=== PATIENT | female | born 1995 | race Caucasian/White ===

== ENCOUNTER 2016-06-04 03:40 | Emergency (ER) | payer OTHER, MEDICAID ==
[~2016-06-04 03:40] MED LIST: CELE10TA; MOTRIN PO; TYLE500T78 PO
[2016-06-04] MEDS ORDERED: ADACEL/BOOSTRIX VACCINE (DIPHTH/PERTUSS/ACELL/TETANUS)0.5ML SYR (90715) As Ordered ONE (07:04)
[2016-06-04] MEDS ORDERED: CIPROFLOXACIN 500 MG TAB As Ordered ONE (07:04)
--- NOTE | 2016-06-04 08:00 | REP ---
RIGHT FOOT SERIES: Two views. HISTORY: Trauma. FINDINGS: AP and lateral views of the right foot demonstrate overall normal mineralization. Bones joints and soft tissues are unremarkable. IMPRESSION: Negative AP and lateral views of the right foot. No fracture seen. Signed by Jordy Collins MD 06/04/2016 10:05 A
--- NOTE | 2016-06-04 08:43 | EDDOCDS ---
Nurse's Notes [facility] Name: Mireya Gordon Age: 21 yrs Sex: Female : 1995 Arrival Date: 06/04/2016 Time: 03:40 Bed 5 Private MD: Diagnosis: Puncture wound without foreign body, right foot Presentation: 06/04 03:57 Presenting complaint: Patient states: she was at work helping a co-worker with a pallet cz and stepped on a nail either from the pallet or one that was on the floor. Adult Sepsis Screening: The patient does not have new or worsening altered mentation. Patient's respiratory rate is less than 22. Systolic blood pressure is greater than 100. Patient has a qSOFA score of 0- Negative Sepsis Screen. Suicide/Homicide risk assessment- the patient denies having any suicidal and/or homicidal ideations and does not present with any other emotional, behavioral or mental health complaints. Status: Patient is not a automotive service technician or dependent. Transition of care: patient was not received from another setting of care. 03:57 Acuity: SHIRLEY Level 4 cz 03:57 Method Of Arrival: Wheelchair cz Triage Assessment: 03:58 General: Appears uncomfortable. Pain: Location: right foot Pain currently is 7 out of cz 10 on a pain scale. HIV screening NA for this visit Offered previously. QA ANALYST: 03:58 LMP 04/30/2016 cz Historical: - Allergies: No known drug Allergies; - Home Meds: 1. none - PMHx: none; - PSHx: none; - Social history: Smoking status: Patient states was never smoker of tobacco. No barriers to communication noted, The patient speaks fluent Danish, Speaks appropriately for age. - Family history: Not pertinent. - : The pt / caregiver states he / she is not on anticoagulants. Home medication list is obtained from the patient. - Exposure Risk Screening:: None identified. - Tetanus status: unknown. Screenin:52 Screening information is obtained from the patient. Fall risk: No risks identified. mv5 Assistance ADL's: requires no assistance with activities of daily living. Abuse/DV Screen: The patient / caregiver reports he/she is: not in a situation that causes fear, pain or injury. Nutritional screening: No deficits noted. Advance Directives: There is no active DNR order. home support is adequate. Assessment: 05:52 General: Appears in no apparent distress, Behavior is cooperative. Pain: Location: arch mv5 of right foot Quality of pain is described as tender, throbbing. Neurological: Level of Consciousness is awake, alert, Oriented to person, place, time. Derm: Skin is pink, warm & dry. Musculoskeletal: Circulation, motion, and sensation intact Capillary refill < 3 seconds. Injury Description: Puncture sustained to arch of right foot. 07:07 General: Appears in no apparent distress, Behavior is appropriate for age, cooperative. js13 Pain: Location: right foot. Neurological: Level of Consciousness is awake, alert. Respiratory: Airway is patent Respiratory effort is even, unlabored, Respiratory pattern is regular, symmetrical. Derm: Skin is pink, warm & dry. 08:19 Adult Sepsis Screening: The patient does not have new or worsening altered mentation. js13 Patient's respiratory rate is less than 22. Systolic blood pressure is greater than 100. Patient has a qSOFA score of 0- Negative Sepsis Screen. General: Appears in no apparent distress, comfortable, Behavior is appropriate for age, cooperative. Pain: Denies pain. Neurological: No deficits noted. Level of Consciousness is awake, alert. Respiratory: Airway is patent Respiratory effort is even, unlabored, Respiratory pattern is regular, symmetrical. Derm: Skin is pink, warm & dry. Vital Signs: 03:58 BP 123 / 74; Pulse 102; Resp 16; Temp 97.4(T); Pulse Ox 100% on R/A; Weight 99.79 kg; cz Height 5 ft. 6 in. (167.64 cm); 07:19 BP 120 / 76; Pulse 102; Resp 17; Temp 98.4(O); Pulse Ox 99% on R/A; lr2 08:39 BP 119 / 78; Pulse 100; Resp 18; Temp 98.6(O); Pulse Ox 99% on R/A; Pain 4/10; nb2 03:58 Body Mass Index 35.51 (99.79 kg, 167.64 cm) Vitals: 03:58 Log In Time: June 04, 2016 at 03:42. ED Course: 03:42 Patient visited by Anabel Hummel, Reg. hs2 03:42 Patient moved to Waiting hs2 03:57 Patient moved to Triage 1 03:58 Triage Initiated cz 04:01 Patient moved to Pre RCE cz 05:14 Tracee Jon RN is Primary Nurse. ml3 05:14 Patient moved to 5 ml3 05:49 [facility] Payment Agreement was scanned into [employer] and attached to record. slh 05:52 Patient visited by Tracee Jon RN. mv5 05:52 The patient / caregiver is instructed regarding the plan of care and ED course. mv5 06:39 Patient visited by Tracee Jon RN. mv5 06:46 Al Patino DO is Attending Physician. cs11 06:46 Patient visited by Al Patino DO. cs11 06:54 Attending Physician role handed off by Al Patino DO sd1 06:54 Magdalena Izquierdo MD is Attending Physician. sd1 07:03 Vane Hamilton RN is Primary Nurse. js13 07:07 No IV's were initiated during this patient's visit. No procedures done that require js13 assistance. 07:08 Patient visited by Vane Hamilton RN. js13 07:20 Patient visited by Lorrie Damon. lr2 07:35 Primary Nurse role handed off by Tracee Jon RN kr3 08:12 Foot, (AP\E\lat) Returned. EDMS 08:20 Patient visited by Vane Hamilton RN. js13 08:39 Patient visited by Caitlin Celis. nb2 08:41 Wound care located on right foot was dressed with band aid. kr3 Administered Medications: 07:08 Drug: Tetanus- Diptheria-Acellular Pertussis 0.5 ml [diphth,pertussis(acel),tetanus 2.5 mv5 Lf unit-8 mcg-5 Lf/0.5mL IM syringe (0.5 mL)] {Tube Drawer: [employer]. Exp: 07/21/2018. Lot #: [id number]. } Route: IM; Site: right deltoid; 07:08 Drug: Ciprofloxacin 500 mg [ciprofloxacin 500 mg tablet (1 tabs)] Route: PO; mv5 Order Results: Radiology Order: Foot, (AP\E\lat) Test: Foot, (AP\E\lat) REASON FOR EXAMINATION: Trauma; RIGHT FOOT SERIES: Two views.; ; HISTORY: Trauma.; ; FINDINGS: AP and lateral views of the right foot demonstrate overall normal; mineralization. Bones joints and soft tissues are unremarkable.; ; IMPRESSION:; Negative AP and lateral views of the right foot. No fracture seen.; ; ; ; ; Unreviewed; Outcome: 08:35 Discharge ordered by Provider. sd1 08:42 Discharge Assessment: patient administered narcotics - no. The following High Risk kr3 Discharge criteria are identified: None. Discharged to home ambulatory, with friend. Condition: stable. Discharge instructions given to patient, Instructed on discharge instructions, follow up and referral plans. medication usage, Demonstrated understanding of instructions, medications, Pt was receptive of discharge instructions/ teaching. Prescriptions given X 1. No special radiology studies were completed. Property sent home with patient. 08:42 Patient left the ED. kr3 Signatures: Dispatcher MedHost EDMS Magdalena Izquierdo MD MD sd1 Omari Mancia, RN RN cz Butch, Garrick, Title Insurance Examiner Unit ml3 Ivette Boyer,RN RN kr3 Vane HamiltonRN RN js13 Al Patino, DO cs11 Shannon Ziegler slAnabel Price, Reg Reg hs2 Caitlin Celis2 Lorrie Damon lr2 Tracee Jon,RN RN mv5 MTDD
--- NOTE | 2016-06-04 08:43 | EDDOCDS ---
Physician Documentation [facility] Name: Mireya Gordon Age: 21 yrs Sex: Female : 1995 Arrival Date: 06/04/2016 Time: 03:40 Bed 5 Private MD: Disposition: 06/04/16 08:35 Discharged to Home/Self Care. Impression: Puncture wound without foreign body, right foot. - Condition is Stable. - Discharge Instructions: Puncture Wound, Puncture Wound, [id number]. - Prescriptions for Cipro 500 mg Oral Tablet - take 1 tablet by ORAL route every 12 hours; 10 tablet. - Medication Reconciliation, Local Pharmacy Hours form. - Follow up: Private Physician; When: Call to arrange an appointment; Reason: Recheck today's complaints. Follow up: Emergency Department; When: 2 - 3 days; Reason: Recheck today's complaints. - Problem is new. - Symptoms have improved. Historical: - Allergies: No known drug Allergies; - Home Meds: 1. none - PMHx: none; - PSHx: none; - Social history: Smoking status: Patient states was never smoker of tobacco. No barriers to communication noted, The patient speaks fluent Zambian, Speaks appropriately for age. - Family history: Not pertinent. - : The pt / caregiver states he / she is not on anticoagulants. Home medication list is obtained from the patient. - Exposure Risk Screening:: None identified. - Tetanus status: unknown. INTERVENTIONAL PHYSICIAN: 06/04 03:58 LMP 04/30/2016 cz Vital Signs: 03:58 BP 123 / 74; Pulse 102; Resp 16; Temp 97.4(T); Pulse Ox 100% on R/A; Weight 99.79 kg / cz 220 lbs; Height 5 ft. 6 in. (167.64 cm); 07:19 BP 120 / 76; Pulse 102; Resp 17; Temp 98.4(O); Pulse Ox 99% on R/A; lr2 08:39 BP 119 / 78; Pulse 100; Resp 18; Temp 98.6(O); Pulse Ox 99% on R/A; Pain 4/10; nb2 03:58 Body Mass Index 35.51 (99.79 kg, 167.64 cm) cz MDM: 05:49 [facility] Payment Agreement was scanned into MEDHOST and attached to record. [facility] 06:42 Tetanus- Diptheria-Acellular Pertussis 0.5 ml IM once; Routine booster 10-64yrs, >64 cs11 with child contact [employer] ordered. 06:43 Foot, (AP\E\lat) Ordered. EDNM 06:49 Financial registration complete. hs2 06:54 Ciprofloxacin 500 mg PO once ordered. cs11 Administered Medications: 07:08 Drug: Tetanus- Diptheria-Acellular Pertussis 0.5 ml [diphth,pertussis(acel),tetanus 2.5 mv5 Lf unit-8 mcg-5 Lf/0.5mL IM syringe (0.5 mL)] {Sales Assistant Entertainment And Media: [employer]. Exp: 07/21/2018. Lot #: [id number]. } Route: IM; Site: right deltoid; 07:08 Drug: Ciprofloxacin 500 mg [ciprofloxacin 500 mg tablet (1 tabs)] Route: PO; mv5 Signatures: Dispatcher Med[employer] EDNM Magdalena Izquierdo MD MD sd1 Omari Mancia, RN RN cz Ivette Boyer RN RN kr3 Al Patino, DO DO cs11 Shannon Ziegler [facility] Anabel Hummel, Reg Reg hs2 Tracee Jon,RN RN mv5 The chart was reviewed and I authenticate all verbal orders and agree with the evaluation and treatment provided.Attachments: 05:49 [facility] Payment Agreement [facility] MTDD
--- NOTE | 2016-06-06 09:43 | EDDOCDS ---
Nurse's Notes [facility] Name: Mireya Gordon Age: 21 yrs Sex: Female : 1995 Arrival Date: 06/04/2016 Time: 03:40 Bed 5 Private MD: Diagnosis: Puncture wound without foreign body, right foot Presentation: 06/04 03:57 Presenting complaint: Patient states: she was at work helping a co-worker with a pallet cz and stepped on a nail either from the pallet or one that was on the floor. Adult Sepsis Screening: The patient does not have new or worsening altered mentation. Patient's respiratory rate is less than 22. Systolic blood pressure is greater than 100. Patient has a qSOFA score of 0- Negative Sepsis Screen. Suicide/Homicide risk assessment- the patient denies having any suicidal and/or homicidal ideations and does not present with any other emotional, behavioral or mental health complaints. Status: Patient is not a funeral service apprentice or dependent. Transition of care: patient was not received from another setting of care. 03:57 Acuity: SHIRLEY Level 4 cz 03:57 Method Of Arrival: Wheelchair cz Triage Assessment: 03:58 General: Appears uncomfortable. Pain: Location: right foot Pain currently is 7 out of cz 10 on a pain scale. HIV screening NA for this visit Offered previously. SURGICAL GARMENT FITTER: 03:58 LMP 04/30/2016 cz Historical: - Allergies: No known drug Allergies; - Home Meds: 1. none - PMHx: none; - PSHx: none; - Social history: Smoking status: Patient states was never smoker of tobacco. No barriers to communication noted, The patient speaks fluent Danish, Speaks appropriately for age. - Family history: Not pertinent. - : The pt / caregiver states he / she is not on anticoagulants. Home medication list is obtained from the patient. - Exposure Risk Screening:: None identified. - Tetanus status: unknown. Screenin:52 Screening information is obtained from the patient. Fall risk: No risks identified. mv5 Assistance ADL's: requires no assistance with activities of daily living. Abuse/DV Screen: The patient / caregiver reports he/she is: not in a situation that causes fear, pain or injury. Nutritional screening: No deficits noted. Advance Directives: There is no active DNR order. home support is adequate. Assessment: 05:52 General: Appears in no apparent distress, Behavior is cooperative. Pain: Location: arch mv5 of right foot Quality of pain is described as tender, throbbing. Neurological: Level of Consciousness is awake, alert, Oriented to person, place, time. Derm: Skin is pink, warm & dry. Musculoskeletal: Circulation, motion, and sensation intact Capillary refill < 3 seconds. Injury Description: Puncture sustained to arch of right foot. 07:07 General: Appears in no apparent distress, Behavior is appropriate for age, cooperative. js13 Pain: Location: right foot. Neurological: Level of Consciousness is awake, alert. Respiratory: Airway is patent Respiratory effort is even, unlabored, Respiratory pattern is regular, symmetrical. Derm: Skin is pink, warm & dry. 08:19 Adult Sepsis Screening: The patient does not have new or worsening altered mentation. js13 Patient's respiratory rate is less than 22. Systolic blood pressure is greater than 100. Patient has a qSOFA score of 0- Negative Sepsis Screen. General: Appears in no apparent distress, comfortable, Behavior is appropriate for age, cooperative. Pain: Denies pain. Neurological: No deficits noted. Level of Consciousness is awake, alert. Respiratory: Airway is patent Respiratory effort is even, unlabored, Respiratory pattern is regular, symmetrical. Derm: Skin is pink, warm & dry. Vital Signs: 03:58 BP 123 / 74; Pulse 102; Resp 16; Temp 97.4(T); Pulse Ox 100% on R/A; Weight 99.79 kg; cz Height 5 ft. 6 in. (167.64 cm); 07:19 BP 120 / 76; Pulse 102; Resp 17; Temp 98.4(O); Pulse Ox 99% on R/A; lr2 08:39 BP 119 / 78; Pulse 100; Resp 18; Temp 98.6(O); Pulse Ox 99% on R/A; Pain 4/10; nb2 03:58 Body Mass Index 35.51 (99.79 kg, 167.64 cm) Vitals: 03:58 Log In Time: June 04, 2016 at 03:42. ED Course: 03:42 Patient visited by Anabel Hummel, Reg. hs2 03:42 Patient moved to Waiting hs2 03:57 Patient moved to Triage 1 03:58 Triage Initiated cz 04:01 Patient moved to Pre RCE cz 05:14 Tracee Jon RN is Primary Nurse. ml3 05:14 Patient moved to 5 ml3 05:49 [facility] Payment Agreement was scanned into [employer] and attached to record. slh 05:52 Patient visited by Tracee Jon RN. mv5 05:52 The patient / caregiver is instructed regarding the plan of care and ED course. mv5 06:39 Patient visited by Tracee Jon RN. mv5 06:46 Al Patino DO is Attending Physician. cs11 06:46 Patient visited by Al Patino DO. cs11 06:54 Attending Physician role handed off by Al Patino DO sd1 06:54 Magdalena Izquierdo MD is Attending Physician. sd1 07:03 Vane Hamilton RN is Primary Nurse. js13 07:07 No IV's were initiated during this patient's visit. No procedures done that require js13 assistance. 07:08 Patient visited by Vane Hamilton RN. js13 07:20 Patient visited by Lorrie Damon. lr2 07:35 Primary Nurse role handed off by Tracee Jon RN kr3 08:12 Foot, (AP\E\lat) Returned. EDMS 08:20 Patient visited by Vane Hamilton RN. js13 08:39 Patient visited by Caitlin Celis. nb2 08:41 Wound care located on right foot was dressed with band aid. kr3 18:28 T-Sheet-- Draft Copy was scanned into [employer] and attached to record. klr Administered Medications: 07:08 Drug: Tetanus- Diptheria-Acellular Pertussis 0.5 ml [diphth,pertussis(acel),tetanus 2.5 mv5 Lf unit-8 mcg-5 Lf/0.5mL IM syringe (0.5 mL)] {Fashion Illustrator: [employer]. Exp: 07/21/2018. Lot #: [id number]. } Route: IM; Site: right deltoid; 07:08 Drug: Ciprofloxacin 500 mg [ciprofloxacin 500 mg tablet (1 tabs)] Route: PO; mv5 Order Results: Radiology Order: Foot, (AP\E\lat) Test: Foot, (AP\E\lat) REASON FOR EXAMINATION: Trauma; RIGHT FOOT SERIES: Two views.; ; HISTORY: Trauma.; ; FINDINGS: AP and lateral views of the right foot demonstrate overall normal; mineralization. Bones joints and soft tissues are unremarkable.; ; IMPRESSION: Negative AP and lateral views of the right foot. No fracture seen.; ; ; Signed by; Jordy Collins MD 06/04/2016 10:05 A; Outcome: 08:35 Discharge ordered by Provider. sd1 08:42 Discharge Assessment: patient administered narcotics - no. The following High Risk kr3 Discharge criteria are identified: None. Discharged to home ambulatory, with friend. Condition: stable. Discharge instructions given to patient, Instructed on discharge instructions, follow up and referral plans. medication usage, Demonstrated understanding of instructions, medications, Pt was receptive of discharge instructions/ teaching. Prescriptions given X 1. No special radiology studies were completed. Property sent home with patient. 08:42 Patient left the ED. kr3 Signatures: Dispatcher MedHost EDMS Magdalena Izquierdo MD MD sd1 Omari Mancia, RN RN cz Garrick Rae, Windows Laptop Technician Unit ml3 Ivette Boyer,RN RN kr3 Vane Hamilton,RN RN js13 Al Patino, DO cs11 Shannon Ziegler Hillary, Reg Reg hs2 Rosalina Voss Nicole nb2 Lorrie Damon lr2 Tracee Jon,RN RN mv5 Chart Complete MTDD
--- NOTE | 2016-06-06 09:43 | EDDOCDS ---
Physician Documentation [facility] Name: Mireya Gordon Age: 21 yrs Sex: Female : 1995 Arrival Date: 06/04/2016 Time: 03:40 Bed 5 Private MD: Disposition: 06/04/16 08:35 Discharged to Home/Self Care. Impression: Puncture wound without foreign body, right foot. - Condition is Stable. - Discharge Instructions: Puncture Wound, Puncture Wound, [id number]. - Prescriptions for Cipro 500 mg Oral Tablet - take 1 tablet by ORAL route every 12 hours; 10 tablet. - Medication Reconciliation, Local Pharmacy Hours form. - Follow up: Private Physician; When: Call to arrange an appointment; Reason: Recheck today's complaints. Follow up: Emergency Department; When: 2 - 3 days; Reason: Recheck today's complaints. - Problem is new. - Symptoms have improved. Historical: - Allergies: No known drug Allergies; - Home Meds: 1. none - PMHx: none; - PSHx: none; - Social history: Smoking status: Patient states was never smoker of tobacco. No barriers to communication noted, The patient speaks fluent Nepali, Speaks appropriately for age. - Family history: Not pertinent. - : The pt / caregiver states he / she is not on anticoagulants. Home medication list is obtained from the patient. - Exposure Risk Screening:: None identified. - Tetanus status: unknown. ASSOCIATE VETERINARIAN: 06/04 03:58 LMP 04/30/2016 cz Vital Signs: 03:58 BP 123 / 74; Pulse 102; Resp 16; Temp 97.4(T); Pulse Ox 100% on R/A; Weight 99.79 kg / cz 220 lbs; Height 5 ft. 6 in. (167.64 cm); 07:19 BP 120 / 76; Pulse 102; Resp 17; Temp 98.4(O); Pulse Ox 99% on R/A; lr2 08:39 BP 119 / 78; Pulse 100; Resp 18; Temp 98.6(O); Pulse Ox 99% on R/A; Pain 4/10; nb2 03:58 Body Mass Index 35.51 (99.79 kg, 167.64 cm) cz MDM: 05:49 [facility] [place] Payment Agreement was scanned into [employer] Online and attached to record. [facility] 06:42 Tetanus- Diptheria-Acellular Pertussis 0.5 ml IM once; Routine booster 10-64yrs, >64 cs11 with child contact [place] [employer] ordered. 06:43 Foot, (AP\E\lat) Ordered. [facility] 06:49 Financial registration complete. hs2 06:54 Ciprofloxacin 500 mg PO once ordered. [facility] 18:28 T-Sheet-- Draft Copy was scanned into [employer] Online and attached to record. klr Administered Medications: 07:08 Drug: Tetanus- Diptheria-Acellular Pertussis 0.5 ml [diphth,pertussis(acel),tetanus 2.5 mv5 Lf unit-8 mcg-5 Lf/0.5mL IM syringe (0.5 mL)] {Atmospheric Scientist: [employer]. Exp: 07/21/2018. Lot #: [id number]. } Route: IM; Site: right deltoid; 07:08 Drug: Ciprofloxacin 500 mg [ciprofloxacin 500 mg tablet (1 tabs)] Route: PO; mv5 Signatures: Dispatcher MedHost EDSD Magdalena Izquierdo MD MD sd1 Omari Mancia, RN RN cz Ivette Boyer RN RN kr3 Al Patino, DO 11 Shannon Ziegler [facility] Anabel Hummel, Reg Reg hs2 Rosalina Voss Megan,RN RN mv5 The chart was reviewed and I authenticate all verbal orders and agree with the evaluation and treatment provided.Attachments: 05:49 [facility] [place] Payment Agreement [facility] 18:28 T-Sheet-- Draft Copy klr Chart Complete [facility]
--- NOTE | 2016-06-06 09:43 | EDDOCDS ---
Physician Documentation [facility] Name: Mireya Gordon Age: 21 yrs Sex: Female : 1995 Arrival Date: 06/04/2016 Time: 03:40 Bed 5 Private MD: Disposition: 06/04/16 08:35 Discharged to Home/Self Care. Impression: Puncture wound without foreign body, right foot. - Condition is Stable. - Discharge Instructions: Puncture Wound, Puncture Wound, [id number]. - Prescriptions for Cipro 500 mg Oral Tablet - take 1 tablet by ORAL route every 12 hours; 10 tablet. - Medication Reconciliation, Local Pharmacy Hours form. - Follow up: Private Physician; When: Call to arrange an appointment; Reason: Recheck today's complaints. Follow up: Emergency Department; When: 2 - 3 days; Reason: Recheck today's complaints. - Problem is new. - Symptoms have improved. Historical: - Allergies: No known drug Allergies; - Home Meds: 1. none - PMHx: none; - PSHx: none; - Social history: Smoking status: Patient states was never smoker of tobacco. No barriers to communication noted, The patient speaks fluent Romanian, Speaks appropriately for age. - Family history: Not pertinent. - : The pt / caregiver states he / she is not on anticoagulants. Home medication list is obtained from the patient. - Exposure Risk Screening:: None identified. - Tetanus status: unknown. 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 6 in. (167.64 cm); 07:19 BP 120 / 76; Pulse 102; Resp 17; Temp 98.4(O); Pulse Ox 99% on R/A; lr2 08:39 BP 119 / 78; Pulse 100; Resp 18; Temp 98.6(O); Pulse Ox 99% on R/A; Pain 4/10; nb2 03:58 Body Mass Index 35.51 (99.79 kg, 167.64 cm) cz MDM: 05:49 [facility] [place] Agreement was scanned into [employer] and attached to record. [facility] 06:42 Tetanus- Diptheria-Acellular Pertussis 0.5 ml IM once; Routine booster 10-64yrs, >64 cs11 with child contact [employer] ordered. 06:43 Foot, (AP\E\lat) Ordered. [facility] 06:49 Financial registration complete. hs2 06:54 Ciprofloxacin 500 mg PO once ordered. [facility] 18:28 T-Sheet-- Draft Copy was scanned into [employer] and attached to record. klr Administered Medications: 07:08 Drug: Tetanus- Diptheria-Acellular Pertussis 0.5 ml [diphth,pertussis(acel),tetanus 2.5 mv5 Lf unit-8 mcg-5 Lf/0.5mL IM syringe (0.5 mL)] {Disposal Worker: [employer]. Exp: 07/21/2018. Lot #: [id number]. } Route: IM; Site: right deltoid; 07:08 Drug: Ciprofloxacin 500 mg [ciprofloxacin 500 mg tablet (1 tabs)] Route: PO; mv5 Signatures: Dispatcher MedHost EDAR Magdalena Izquierdo MD MD sd1 Omari Mancia, RN RN cz Ivette Boyer RN RN kr3 Al Patino, DO 11 Shannon Ziegler [facility] Anabel Hummel, Reg Reg hs2 Rosalina Voss Megan,RN RN mv5 The chart was reviewed and I authenticate all verbal orders and agree with the evaluation and treatment provided.Attachments: 05:49 [facility] [place] Agreement [facility] 18:28 T-Sheet-- Draft Copy klr Chart Complete [facility]
== END 2016-06-04 08:42 | disposition home or self-care (01) ==
LOC: M ED 03:40
DX: S91.331A Puncture wound without foreign body, right foot, initial encounter (principal); W45.0XXA Nail entering through skin, initial encounter; Y92.89 Other specified places as the place of occurrence of the external cause; Y93.89 Activity, other specified; Y99.0 Civilian activity done for income or pay

== ENCOUNTER → 2016-07-22 | Outpatient (CLI) | payer MEDICAID | LOC: M SMT 09:21 | PROVIDERS: ATTEND Obstetrics & Gynecology | DX: Z34.81 Encounter for supervision of other normal pregnancy, first trimester (principal) ==

== ENCOUNTER → 2016-09-06 | Outpatient (CLI) | payer OTHER ==
[2016-09-06 19:29] LABS: BASO % 0.4 % (0.0-1.0); EOS # 0.1 K/mm3 (0.0-0.50); EOS % 1.2 % (0.0-3.0); LARGE UNSTAINED CELL # 0.1 K/mm3 (0.0-0.4); LARGE UNSTAINED CELL % 1.3 % (0.0-4.0); LYMPH # 2.6 K/mm3 (1.5-6.5); LYMPH % 28.9 % (24.0-44.0); MEAN CORPUSCULAR HEMOGLOBIN 25.4 pg (27.0-33.0); MEAN CORPUSCULAR HGB CONC 33.2 g/dl (32.0-36.5); MEAN CORPUSCULAR VOLUME 76.5 fl (80.0-96.0); MONO # 0.5 K/mm3 (0.0-0.8); MONO % 5.3 % (0.0-5.0); NEUTROPHILS # 5.5 K/mm3 (1.8-7.7); NEUTROPHILS % 62.9 % (36.0-66.0); PLATELET COUNT, AUTOMATED 273 k/mm3 (150-450); RED CELL DISTRIBUTION WIDTH 14.8 % (11.5-14.5); WHITE BLOOD COUNT 8.7 K/mm3 (4.0-10.0)
--- NOTE | 2016-09-07 04:44 | REP ---
Clinical: Anatomical evaluation. Comparison: None . Findings: Examination demonstrates a single live intrauterine in cephalic presentation. motion is identified by technologist. Placenta is noted right laterally and grade zero without evidence for placenta previa or abruption. Amniotic fluid volume is normal. Cervix measures 3.4 cm in length and appears closed. No evidence for nuchal cord. Gestational age by LMP 18 weeks 3 days with JATINDER 02/04/2017 . Gestational age by current measurements 18 weeks 1 day with JATINDER 02/06/2017 . FHR equals 153 beats per minute. BPD 4.0 cm 18 weeks 1 day HC 15.0 cm 18 weeks 0 days AC 12.5 cm 18 weeks 1 day FL 2.8 cm 18 weeks 3 days HL 2.9 cm 19 weeks 4 days HC/AC ratio 1.20 Estimated weight 231 grams ( 41st percentile). Anatomical assessment demonstrates normal structures including cranium, choroid plexus, cavum, cerebellum/posterior fossa, lungs, diaphragm, stomach, cord insertion/three-vessel cord, kidneys/bladder, spine, and upper extremities. Limited evaluation of the facial features, heart/ventricular outflow tracts and lower extremities noted. Impression: Single live intrauterine in cephalic presentation demonstrating appropriate interval growth. Anatomical limitations as described above. Remainder of the anatomical assessment is complete and normal. Signed by Franck Carrington MD 09/07/2016 04:35 A
[2016-09-07 09:30] LABS: HBsAg Prenatal NEGATIVE (NEGATIVE)
== END ==
LOC: M SMT 14:56
PROVIDERS: ATTEND Obstetrics & Gynecology
DX: Z34.82 Encounter for supervision of other normal pregnancy, second trimester (principal)

== ENCOUNTER 2016-09-27 02:49 | Emergency (ER) | payer OTHER ==
[~2016-09-27] VITALS: Ht 167.6 cm; Wt 83.0 kg
[2016-09-27] MEDS ORDERED: antibiotic PO (02:56)
[2016-09-27] MEDS ORDERED: TYLE325C PO (03:01)
[2016-09-27 03:57] LABS: BASO % 0.2 % (0.0-1.0); EOS # 0.1 K/mm3 (0.0-0.50); EOS % 1.1 % (0.0-3.0); LARGE UNSTAINED CELL # 0.1 K/mm3 (0.0-0.4); LARGE UNSTAINED CELL % 0.9 % (0.0-4.0); LYMPH # 1.5 K/mm3 (1.5-6.5); LYMPH % 18.1 % (24.0-44.0); MEAN CORPUSCULAR HEMOGLOBIN 24.3 pg (27.0-33.0); MEAN CORPUSCULAR VOLUME 75.9 fl (80.0-96.0); MONO # 0.3 K/mm3 (0.0-0.8); MONO % 4.1 % (0.0-5.0); NEUTROPHILS # 6.1 K/mm3 (1.8-7.7); NEUTROPHILS % 75.7 % (36.0-66.0); PLATELET COUNT, AUTOMATED 271 k/mm3 (150-450); RED CELL DISTRIBUTION WIDTH 14.6 % (11.5-14.5); WHITE BLOOD COUNT 8.1 K/mm3 (4.0-10.0)
[2016-09-27 04:20] LABS: ALBUMIN 2.5 GM/DL (3.2-5.2); ALBUMIN/GLOBULIN RATIO 0.69 (1.00-1.93); ALKALINE PHOSPHATASE 70 U/L (45-117); ALT/SGPT 13 U/L (12-78); ANION GAP 7 MEQ/L (8-16); AST/SGOT 9 U/L (15-37); BILIRUBIN,DIRECT < 0.1 MG/DL (0.0-0.2); BILIRUBIN,TOTAL 0.2 MG/DL (0.2-1.0); BLOOD UREA NITROGEN 5 MG/DL (7-18); CALCIUM LEVEL 7.7 MG/DL (8.5-10.1); CARBON DIOXIDE LEVEL 26 MEQ/L (21-32); CHLORIDE LEVEL 107 MEQ/L (98-107); CREATININE FOR GFR 0.41 MG/DL (0.55-1.02); GLOMERULAR FILTRATION RATE > 60.0 (>60); GLUCOSE, FASTING 93 MG/DL (70-105); POTASSIUM SERUM 3.8 MEQ/L (3.5-5.1); SODIUM LEVEL 140 MEQ/L (136-145); TOTAL PROTEIN 6.1 GM/DL (6.4-8.2)
[2016-09-27 05:47] VITALS: BP 113/70
--- NOTE | 2016-09-27 11:36 | ECGEPIP ---
Stationary ECG Study [facility] - ED Test Date: 2016-09-27 Pat Name: KAMILAH NOLASCO Department: Room: - Gender: F Personal Counselor: AlemanB: 1995 Requested By: CHUCKIE Bass PA-C Order Number: [id number] Reading MD: Javier Blanchard Measurements Intervals Chancellor Rate: 85 P: 2 MT: 152 QRS: 68 QRSD: 84 T: 12 QT: 381 QTc: 454 Interpretive Statements SINUS RHYTHM WITH SINUS ARRHYTHMIA Electronically Signed On 09-27-2016 11:36:31 EDT by Javier Blanchard
== END 2016-09-27 07:07 | disposition home or self-care (01) ==
LOC: M ED 03:50
DX: O99.89 Other specified diseases and conditions complicating pregnancy, childbirth and the puerperium (principal); R51 Headache; O24.419 Gestational diabetes mellitus in pregnancy, unspecified control; O99.52 Diseases of the respiratory system complicating childbirth; Z3A.00 Weeks of gestation of pregnancy not specified

== ENCOUNTER → 2016-09-28 | Outpatient (REF) | payer OTHER ==
[~2016-09-28] MED LIST changes: +TYLE325C PO; +antibiotic PO
== END ==
LOC: M LAB REF 16:59
PROVIDERS: ATTEND Specialist
DX: Z34.82 Encounter for supervision of other normal pregnancy, second trimester (principal)

== ENCOUNTER → 2016-10-13 | Outpatient (REF) | payer OTHER | LOC: M LAB REF 12:09 | PROVIDERS: ATTEND Physician Assistant Medical | DX: R30.0 Dysuria (principal) ==

== ENCOUNTER → 2016-10-19 | Outpatient (CLI) | payer OTHER | LOC: M WHC 10:04 | PROVIDERS: ATTEND Specialist | DX: Z34.82 Encounter for supervision of other normal pregnancy, second trimester (principal); Z3A.24 24 weeks gestation of pregnancy ==

== ENCOUNTER → 2016-10-26 | Outpatient (REF) | payer OTHER ==
[2016-10-26 19:19] LABS: BASO % 0.3 % (0.0-1.0); EOS # 0.1 K/mm3 (0.0-0.50); EOS % 0.9 % (0.0-3.0); LARGE UNSTAINED CELL # 0.1 K/mm3 (0.0-0.4); LARGE UNSTAINED CELL % 0.9 % (0.0-4.0); LYMPH # 2.2 K/mm3 (1.5-6.5); MEAN CORPUSCULAR HEMOGLOBIN 24.2 pg (27.0-33.0); MEAN CORPUSCULAR HGB CONC 32.3 g/dl (32.0-36.5); MONO # 0.5 K/mm3 (0.0-0.8); MONO % 5.3 % (0.0-5.0); NEUTROPHILS # 7.2 K/mm3 (1.8-7.7); NEUTROPHILS % 71.5 % (36.0-66.0); PLATELET COUNT, AUTOMATED 307 k/mm3 (150-450); RED CELL DISTRIBUTION WIDTH 14.9 % (11.5-14.5); WHITE BLOOD COUNT 10.1 K/mm3 (4.0-10.0)
== END ==
LOC: M LABSMT 17:30
PROVIDERS: ATTEND Specialist
DX: Z34.82 Encounter for supervision of other normal pregnancy, second trimester (principal)

== ENCOUNTER → 2016-11-09 | Outpatient (CLI) | payer OTHER | LOC: M SMT 10:27 | PROVIDERS: ATTEND Specialist | DX: Z36 Encounter for antenatal screening of mother (principal); Z3A.00 Weeks of gestation of pregnancy not specified ==

== ENCOUNTER → 2017-01-10 | Outpatient (REF) | payer OTHER | LOC: M LAB REF 13:03 | PROVIDERS: ATTEND Obstetrics & Gynecology | DX: O24.410 Gestational diabetes mellitus in pregnancy, diet controlled (principal); Z3A.00 Weeks of gestation of pregnancy not specified ==

== ENCOUNTER 2017-01-28 04:54 | Inpatient (IN) | payer OTHER ==
[2017-01-28] VITALS (24 sets, daily range): BP systolic 90–131; BP diastolic 53–81
[~2017-01-28] VITALS: Ht 167.6 cm; Wt 86.2 kg
[2017-01-28 05:59] LABS: MEAN CORPUSCULAR HEMOGLOBIN 19.7 pg (27.0-33.0); MEAN CORPUSCULAR HGB CONC 29.2 g/dl (32.0-36.5); RED CELL DISTRIBUTION WIDTH 18.3 % (11.5-14.5); WHITE BLOOD COUNT 9.6 10^3/uL (4.0-10.0)
[2017-01-28 06:01] LABS: MEAN CORPUSCULAR VOLUME 67.6 fl (80.0-96.0)
[2017-01-28] MEDS ORDERED: LR 1,000 ML IV SCH (06:10)
[2017-01-28] MEDS ORDERED: LACTATED RINGER'S 1000 ML IV STA (06:10)
[2017-01-28] MEDS ORDERED: OXYTOCIN DRIP 30 UNITS in APPROPRIATE DILUENT 1 EA IV SCH ×2 (06:15→11:27)
--- NOTE | 2017-01-28 06:37 | HPEPDOC ---
[facility] Medical History & Physical Date of Admission Jan 28, 2017 [facility] Attending Physician: ERIK CARTAGENA DO History and Physical CHIEF COMPLAINT: 21-year-old 2, para 1001, estimated date of delivery . Admitted at 39 weeks for induction of labor at term due to A1 gestational diabetes. HISTORY OF PRESENT ILLNESS: Last normal menstrual period 04/29/2016 for JATINDER of 02/03/2017. Prepregnancy weight was unknown. Weight at entry to care, was 190. She has gained no weight this . First trimester sonogram performed on July 05 at 9 weeks gestation confirmed the date of the . She has had appropriate care. She performed an early 1 hour glucose test due to her history of gestational diabetes with her previous that was normal. However her repeat third trimester glucose screen was abnormal. She declined performing the three-hour glucose and chose to start testing her blood sugars instead. She has been well maintained on dietary changes with appropriate glucose levels. Her anatomy scan was within normal limits OB history: November 2013. Normal spontaneous vaginal delivery, viable male child , 7 lbs. 11 oz. at 38+ weeks gestation. complicated by gestational diabetes PAST MEDICAL HISTORY: 1. Gestational diabetes. 2. Depression. 3. Asthma. PAST SURGICAL HISTORY: 1. None Reported. SOCIAL HISTORY: Marital status: Single. Father of the baby is present and supportive. Tobacco use: Denies ETOH: Denies Illicit drug use: Denies FAMILY HISTORY: Depression, anxiety and diabetes ALLERGIES: Please see below. CONSTITUTIONAL: Alert, well-nourished. HEENT: Within normal limits. CARDIOVASCULAR: Heart rate regular. RESPIRATORY: Respirations easy. ABDOMEN: Soft, gravid, longitudinal lie, rare contractions. heart 150, moderate variability with accelerations. SVE: 2-3 cm, 80% effaced, -2 station, cephalic. HOME MEDICATIONS: Please see below. LABORATORY DATA: A+, antibody negative, rubella immune. VDRL, hep B, hep C, HIV , gonorrhea and Chlamydia all negative. Early 1 hour glucose was 125. She declined genetic screening labs, repeat 1 hour glucose was 154, and her group B strep was negative MICROBIOLOGY: Please see below. ASSESSMENT: A 21-year-old 2, para 1001 at 39 weeks gestation. Category 1 tracing. A1 gestational diabetes for induction of labor at term. . PLAN: 1. Admit per consult Dr. Cartagena. Will initiate Pitocin induction of labor, glucose monitoring. Patient undecided on coping mechanisms for her labor. Anticipate normal spontaneous vaginal . Vital Signs Vital Signs Date Time Temp Pulse Resp B/P (MAP) Pulse Ox O2 Delivery O2 Flow Rate FiO2 01/28/17 05:49 97.9 01/28/17 05:10 116 18 115/75 (88) Laboratory Data Labs 24H Laboratory Tests 2 01/28/17 05:02: Serology Scanned Report Hepatitis B Testing 01/28/17 05:51: CBC/BMP Laboratory Tests 01/28/17 05:51 Red Blood Count 4.66, Mean Corpuscular Volume 67.6 L, Mean Corpuscular Hemoglobin 19.7 L, Mean Corpuscular Hemoglobin Concent 29.2 L, Red Cell Distribution Width 18.3 H Home Medications Scheduled (Tylenol) 325 Mg Cap, 325 MG PO ASDIRECTED [antibiotic] , 1 TAB PO BID Scheduled PRN Acetaminophen (Tylenol Extra Strength) 500 Mg Tab, 1,000 MG PO Q6HP PRN for MILD PAIN (PS 1-4) [Motrin] , 800 MG PO Q8HP PRN for MODERATE PAIN (PS 5-7) Miscellaneous Medications Citalopram Hydrobromide (Celexa) 10 Mg Tab Allergies Coded Allergies: No Known Allergies (Unverified Allergy, Mild, 03/19/08) Marine Moeller CNM Jan 28, 2017 06:37
[2017-01-28] MEDS ORDERED: FENTANYL 2MCG/ML ROPIVACAINE 0.2% IN 0.9% NACL 200ML IVBAG As Ordered ONE (08:14)
[2017-01-28] MEDS ORDERED: NALOXONE INJ 0.4 MG/1 ML VIAL (J2310) IV PRN (10:00)
[2017-01-28] MEDS ORDERED: ePHEDrine SULFATE 25 MG/5 ML(5MG/ML) SYRINGE IV PRN (10:00)
[2017-01-28] MEDS ORDERED: EPIDURAL COMMENT XX SCH (10:00)
[2017-01-28] MEDS ORDERED: diphenhydrAMINE INJ 50MG/ML VIAL (J1200) IV PRN (10:00)
[2017-01-28] MEDS ORDERED: LACTATED RINGER'S 1000 ML IV PRN (10:00)
[2017-01-28] MEDS ORDERED: REFRIGERATOR IV KEYS XX PRN (10:00)
[2017-01-28] MEDS ORDERED: FENTANYL/ROPIVACAINE/NACL BAG 200 ML EPIDURAL SCH (10:00)
[2017-01-28] MEDS ORDERED: EPIDURAL/PCA KEYS XX PRN (10:00)
[2017-01-28] MEDS ORDERED: ONDANSETRON 4MG/2ML VIAL (J2405) IV PRN ×2 (10:00→11:30)
[2017-01-28] MEDS: LR 1,000 ML IV SCH ×2 (11:27→19:27)
[2017-01-28] MEDS ORDERED: MEASLES,MUMPS,RUBELLA VACCINE INJ (MMR-II) (90707) SC SCH (11:30)
[2017-01-28] MEDS ORDERED: ACETAMINOPHEN 500 MG TAB PO PRN (11:30)
[2017-01-28] MEDS ORDERED: RHOGAM 300 MCG (1500 IU) INJ (J2790) IM SCH (11:30)
[2017-01-28] MEDS ORDERED: PROMETHAZINE 25 MG TAB PO PRN (11:30)
[2017-01-28] MEDS ORDERED: DOCUSATE SODIUM 100 MG CAP PO PRN (11:30)
[2017-01-28] MEDS: IBUPROFEN 800 MG TAB PO PRN (18:52)
[2017-01-29] MEDS: LR 1,000 ML IV SCH ×3 (03:27→19:30)
[2017-01-29 05:04] VITALS: BP 113/67
--- NOTE | 2017-01-29 07:59 | IPNPDOC ---
Date Seen The patient was seen on 01/29/17. Progress Note PP#1 Feels well. on demand. Voiding. Adequate pain management VSS Breasts soft, nipples intact Fundus firm, NT, down 1 FB Perineum intact Lochia rubra light without odor Legs negative A: PPD #1, early nursing going well P: Routine care. Anticipate D/C in am VS, I&O, 24H, Fishbone Vital Signs/I&O Vital Signs Date Time Temp Pulse Resp B/P (MAP) Pulse Ox O2 Delivery O2 Flow Rate FiO2 01/29/17 05:04 98.4 68 18 113/67 (82) 98 Room Air Marine Moeller CNM Jan 29, 2017 07:59
[2017-01-29] MEDS: PRENATAL VITAMINS CHEWABLE TABLET PO SCH (08:20)
[2017-01-29] MEDS: IBUPROFEN 800 MG TAB PO PRN ×2 (08:20→18:13)
[2017-01-29 18:00] VITALS: BP 124/70
[2017-01-30] MEDS: IBUPROFEN 800 MG TAB PO PRN ×2 (02:33→12:43)
[2017-01-30] MEDS: LR 1,000 ML IV SCH ×2 (03:27→11:27)
[2017-01-30 05:56] VITALS: BP 99/56
[2017-01-30] MEDS ORDERED: INFLUENZA QUADRIVALENT PF VACCINE 0.5ML SYRINGE (90686) IM ONE (09:00)
[2017-01-30] MEDS: PRENATAL VITAMINS CHEWABLE TABLET PO SCH (10:25)
--- NOTE | 2017-02-13 14:15 | DSES ---
DATE OF ADMISSION: 01/28/2017 DATE OF DISCHARGE: 01/30/2017 DISCHARGE DIAGNOSIS: Vaginal delivery. HISTORY AND HOSPITAL COURSE: This patient is a 21-year-old, 1, para 1, who presented at 39+ weeks for induction of labor for gestational diabetes. She had a spontaneous vaginal delivery on 01/28/2017 at 10:43, productive of a live born male infant. scores were 9 and 9. Weight was 3100 grams, which is 6 pounds 13 ounces. She did well . By day had met all discharge criteria and was discharged home in stable condition. DISCHARGE MEDICATIONS: 1. She was instructed to take Tylenol and ibuprofen as needed for pain. 2. Report severe pain, heavy vaginal bleeding, fever, breast feeding issues. 3. Will remain on pelvic rest for 3 weeks.
== END 2017-01-30 14:25 | disposition home or self-care (01) | DRG 560 ==
LOC: M LDI 04:54 → M OBS 13:01
PROVIDERS: ADMIT Advanced Practice Midwife; ATTEND Advanced Practice Midwife
PROC: 10E0XZZ Delivery of Products of Conception, External Approach (ICD-10-PCS; principal; 2017-01-28)
PROC: 3E033VJ Introduction of Other Hormone into Peripheral Vein, Percutaneous Approach (ICD-10-PCS; 2017-01-28)
DX: O24.420 Gestational diabetes mellitus in childbirth, diet controlled (principal); Z37.0 Single live birth; Z3A.39 39 weeks gestation of pregnancy

== ENCOUNTER → 2018-06-20 | Outpatient (REF) | payer OTHER ==
[2018-06-20 12:45] LABS: APPEARANCE, URINE CLOUDY (CLEAR); BACTERIA, URINE AUTO NEGATIVE (NEGATIVE); BILIRUBIN, URINE AUTO NEGATIVE (NEGATIVE); BLOOD, URINE BLOOD NEGATIVE (NEGATIVE); COLOR, URINE YELLOW (YELLOW); GLUCOSE, URINE (UA) AUTO NEGATIVE (NEGATIVE); KETONE, URINE AUTO NEGATIVE (NEGATIVE); LEUKOCYTE ESTERASE, URINE AUTO TRACE (NEGATIVE); MUCUS, URINE SMALL (NEGATIVE); NITRITE, URINE AUTO POSITIVE (NEGATIVE); PROTEIN, URINE AUTO NEGATIVE (NEGATIVE); RBC, URINE AUTO 1 /HPF (0-3); SPECIFIC GRAVITY URINE AUTO 1.024 (1.002-1.035); SQUAMOUS EPITHELIAL CELL UR AU 8 /HPF (0-6); UROBILINOGEN, URINE AUTO 0.2 mg/dL (0.0-2.0); WBC, URINE AUTO 7 /HPF (0-3)
== END ==
LOC: M LAB REF 10:56
PROVIDERS: ATTEND Physician Assistant
DX: N39.0 Urinary tract infection, site not specified (principal)

== ENCOUNTER → 2018-07-31 | Outpatient (CLI) | payer OTHER ==
[2018-07-31 12:19] LABS: BASO % 0.5 % (0.0-1.0); EOS # 0.1 10^3/uL (0.0-0.50); EOS % 0.9 % (0.0-3.0); HEMATOCRIT 39.1 % (36.0-47.0); HEMOGLOBIN 12.4 g/dl (12.0-15.5); LYMPH % 25.3 % (24.0-44.0); MEAN CORPUSCULAR HEMOGLOBIN 25.1 pg (27.0-33.0); MEAN CORPUSCULAR HGB CONC 31.7 g/dl (32.0-36.5); MEAN CORPUSCULAR VOLUME 79.1 fl (80.0-96.0); MONO # 0.4 10^3/uL (0.0-0.8); MONO % 4.5 % (0.0-5.0); NEUTROPHILS # 5.3 10^3/uL (1.8-7.7); NEUTROPHILS % 68.5 % (36.0-66.0); PLATELET COUNT, AUTOMATED 301 10^3/uL (150-450); RED BLOOD COUNT 4.94 10^6/uL (4.00-5.40); WHITE BLOOD COUNT 7.8 10^3/uL (4.0-10.0)
[2018-07-31 13:26] LABS: CHLAMYDIA DNA AMPLIFICATION NEGATIVE (NEGATIVE); GC DNA AMPLIFICATION NEGATIVE (NEGATIVE)
[2018-08-01 11:00] LABS: HEPATITIS C VIRUS ABY INDEX 0.1 INDEX (<0.8); HIV 1&2 SCREEN CENTAUR NEGATIVE (NEGATIVE); RUBELLA IgG QUALITATIVE EQUIVOCAL (IMMUNE)
== END ==
LOC: M SMT 08:16
PROVIDERS: ATTEND Obstetrics & Gynecology
DX: Z34.81 Encounter for supervision of other normal pregnancy, first trimester (principal); Z36.89 Encounter for other specified antenatal screening

== ENCOUNTER → 2018-08-23 | Outpatient (REF) | payer OTHER | LOC: M LAB REF 13:29 | PROVIDERS: ATTEND Obstetrics & Gynecology | DX: Z34.82 Encounter for supervision of other normal pregnancy, second trimester (principal); Z3A.00 Weeks of gestation of pregnancy not specified ==

== ENCOUNTER → 2018-09-03 | Outpatient (CLI) | payer OTHER ==
--- NOTE | 2018-09-04 04:23 | REP ---
Clinical: Anatomical evaluation. Comparison: None . Findings: Examination demonstrates a single live intrauterine in cephalic presentation. motion is identified by technologist. Placenta is noted posterior fundal and grade zero without evidence for placenta previa or abruption. Amniotic fluid volume is normal. Cervix measures 3.9 cm in length and appears closed. No evidence for nuchal cord. Gestational age by LMP 18 weeks 2 days with JATINDER 02/02/2019 . Gestational age by current measurements 18 weeks 2 days with JATINDER 02/02/2019 . FHR equals 145 beats per minute. BPD 4.2 cm 18 weeks 4-day HC 15.8 cm 18 weeks 5-day AC 12.9 cm 18 weeks 3 days FL 2.7 cm 18 weeks 1 day HL 2.5 cm 17 weeks 6 days HC/AC ratio 1.22 Estimated weight 238 grams ( 50th percentile). Anatomical assessment demonstrates normal structures including cranium, choroid plexus, cavum, cerebellum/posterior fossa, stomach, cord insertion/three-vessel cord, bladder. Limited evaluation of the facial features, lungs, heart/ventricular outflow tracts, diaphragm, kidneys, spine, and upper extremities. Impression: 1. Single live intrauterine in cephalic presentation demonstrating appropriate interval growth. 2. Anatomical limitations as described above warrant reevaluation and follow-up. Electronically Signed by Franck Carrington MD 09/04/2018 04:16 A
== END ==
LOC: M RAD 09:14
PROVIDERS: ATTEND Obstetrics & Gynecology
DX: Z34.81 Encounter for supervision of other normal pregnancy, first trimester (principal); Z36.89 Encounter for other specified antenatal screening; Z3A.18 18 weeks gestation of pregnancy

== ENCOUNTER → 2018-09-20 | Outpatient (REF) | payer OTHER | LOC: M LAB REF 13:12 | PROVIDERS: ATTEND Obstetrics & Gynecology | DX: Z34.82 Encounter for supervision of other normal pregnancy, second trimester (principal) ==

== ENCOUNTER → 2018-10-15 | Outpatient (CLI) | payer OTHER ==
--- NOTE | 2018-10-15 12:20 | REP ---
Obstetric ultrasound for anatomy follow-up: Comparison is 09/03/2018. There is a single intrauterine gestation in a vertex presentation. There is movement and cardiac activity. The heart rate is 158 beats per minute. The placenta is posterior. There is no previa or abruptio. The placenta is grade zero. The amniotic fluid volume subjectively is normal. Cervix measures 3.8 cm length. Gestational age by today's ultrasound the is 23 weeks 4 days/JATINDER 02/07/2019. Gestational age by the first ultrasound is 24 weeks 2 days/JATINDER 02/22/2019. Gestational age by LMP is 24 weeks 2 days/JATINDER 02/02/2019. weight is 620 grams/1 pound, 5 ounces. This is the 27th percentile for 24 weeks 2 days. anatomy: The following anatomic structures are identified and are unremarkable: Cranium, choroid plexus, intracranial lateral ventricles, cavum septum pellucidum, cerebellum, face, facial profile, upper lip, lungs, four-chamber heart, cardiac right and left ventricular outflow tracts, diaphragm, stomach, cord insertion, three-vessel cord, kidneys, bladder, spine and upper lower extremities. Impression: There are no anomalies. The structures that were adequately demonstrated previously are adequately demonstrated today and are unremarkable. Electronically Signed by Ezequiel Gonzales MD 10/15/2018 12:11 P
== END ==
LOC: M RAD 08:40
PROVIDERS: ATTEND Obstetrics & Gynecology
DX: Z34.82 Encounter for supervision of other normal pregnancy, second trimester (principal)

== ENCOUNTER → 2018-10-29 | Outpatient (CLI) | payer OTHER ==
[~2018-10-29] MED LIST changes: +IBUP80TA PO; +OXYC1TAB23 PO; +PRENTAB9 PO
[2018-10-29 08:41] LABS: HEMATOCRIT 33.7 % (36.0-47.0); HEMOGLOBIN 10.2 g/dl (12.0-15.5); MEAN CORPUSCULAR HEMOGLOBIN 23.1 pg (27.0-33.0); MEAN CORPUSCULAR HGB CONC 30.3 g/dl (32.0-36.5); MEAN CORPUSCULAR VOLUME 76.2 fl (80.0-96.0); PLATELET COUNT, AUTOMATED 251 10^3/uL (150-450); RED BLOOD COUNT 4.42 10^6/uL (4.00-5.40); WHITE BLOOD COUNT 7.5 10^3/uL (4.0-10.0)
== END ==
LOC: M LAB 08:03
PROVIDERS: ATTEND Obstetrics & Gynecology
DX: Z34.82 Encounter for supervision of other normal pregnancy, second trimester (principal); Z3A.00 Weeks of gestation of pregnancy not specified

== ENCOUNTER → 2019-01-03 | Outpatient (CLI) | payer OTHER ==
[~2019-01-03] MED LIST changes: -IBUP80TA PO; -OXYC1TAB23 PO; -PRENTAB9 PO
== END ==
LOC: M SMT 10:43
PROVIDERS: ATTEND Advanced Practice Midwife
DX: Z34.83 Encounter for supervision of other normal pregnancy, third trimester (principal)

== ENCOUNTER → 2019-01-03 | Outpatient (REF) | payer OTHER | LOC: M LAB REF 12:42 | PROVIDERS: ATTEND Obstetrics & Gynecology | DX: Z34.83 Encounter for supervision of other normal pregnancy, third trimester (principal) ==

== ENCOUNTER 2019-01-26 10:05 | Inpatient (IN) | payer OTHER ==
[~2019-01-26] VITALS: Ht 167.6 cm; Wt 100.5 kg
[2019-01-26] VITALS (25 sets, daily range): BP systolic 109–134; BP diastolic 47–93
[2019-01-26] MEDS ORDERED: PRENTAB9 PO (10:29)
[2019-01-26 10:44] LABS: HEMATOCRIT 30.3 % (36.0-47.0); HEMOGLOBIN 8.8 g/dl (12.0-15.5); MEAN CORPUSCULAR HEMOGLOBIN 20.5 pg (27.0-33.0); MEAN CORPUSCULAR VOLUME 70.5 fl (80.0-96.0); PLATELET COUNT, AUTOMATED 234 10^3/uL (150-450); WHITE BLOOD COUNT 6.8 10^3/uL (4.0-10.0)
[2019-01-26] MEDS ORDERED: LACTATED RINGER'S 1000 ML IV STA (11:20)
[2019-01-26] MEDS ORDERED: LR 1,000 ML IV SCH ×2 (11:30→16:15)
[2019-01-26] MEDS ORDERED: OXYTOCIN DRIP 30 UNITS in IV 1 EA IV SCH ×2 (12:15→16:09)
[2019-01-26] MEDS ORDERED: FENTANYL 2MCG/ML ROPIVACAINE 0.2% IN 0.9% NACL 100ML IVBAG As Ordered ONE (13:57)
[2019-01-26] MEDS ORDERED: ONDANSETRON 4MG/2ML VIAL (J2405) IV PRN ×2 (15:00→16:15)
[2019-01-26] MEDS ORDERED: ePHEDrine SULFATE 25 MG/5 ML(5MG/ML) SYRINGE IV PRN (15:00)
[2019-01-26] MEDS ORDERED: REFRIGERATOR IV KEYS XX PRN (15:00)
[2019-01-26] MEDS ORDERED: EPIDURAL/PCA KEYS XX PRN (15:00)
[2019-01-26] MEDS ORDERED: diphenhydrAMINE INJ 50MG/ML VIAL (J1200) IV PRN (15:00)
[2019-01-26] MEDS ORDERED: LACTATED RINGER'S 1000 ML IV PRN (15:00)
[2019-01-26] MEDS ORDERED: NALOXONE INJ 0.4 MG/1 ML VIAL (J2310) IV PRN (15:00)
[2019-01-26] MEDS ORDERED: EPIDURAL COMMENT XX SCH (15:00)
[2019-01-26] MEDS ORDERED: FENTANYL/ROPIVACAINE/NACL BAG 100 ML EPIDURAL SCH (15:00)
[2019-01-26] MEDS ORDERED: PROMETHAZINE 25 MG TAB PO PRN (16:15)
[2019-01-26] MEDS ORDERED: IBUPROFEN 600 MG TAB PO PRN (16:15)
[2019-01-26] MEDS ORDERED: RHOGAM 300 MCG (1500 IU) INJ (J2790) IM SCH (16:15)
[2019-01-26] MEDS ORDERED: MEASLES,MUMPS,RUBELLA VACCINE INJ (MMR-II) (90707) SC SCH (16:15)
[2019-01-26] MEDS ORDERED: DIBUCAINE 1% OINTMENT 30GM TOP PRN (16:15)
[2019-01-26] MEDS ORDERED: DOCUSATE SODIUM 100 MG CAP PO PRN (16:15)
[2019-01-26] MEDS: IBUPROFEN 800 MG TAB PO PRN (17:12)
[2019-01-26] MEDS: SLF 3 ML SYR IV SCH (21:51)
[2019-01-27] MEDS: ACETAMINOPHEN 500 MG TAB PO PRN ×2 (01:28→13:15)
[2019-01-27 06:00] VITALS: BP 101/59
[2019-01-27] MEDS: SLF 3 ML SYR IV SCH (06:19)
[2019-01-27] MEDS: PRENATAL VITAMINS CHEWABLE TABLET PO SCH (07:49)
[2019-01-27] MEDS: IBUPROFEN 800 MG TAB PO PRN (07:50)
[2019-01-27] MEDS ORDERED: IBUP80TA PO (10:21)
--- NOTE | 2019-01-27 11:04 | REP ---
ABDOMEN SUPINE: 01/27/2019. Clinical history: Possible retained IUD. Findings: Two views are provided to encompass the entirety of the pelvis and abdomen to above the diaphragm level. There is no evidence of a retained IUD or other foreign body in the abdomen or pelvis. The bones are unremarkable. Gas pattern nonspecific. Impression: 1. No evidence of a retained IUD or other foreign body. Negative exam. Electronically Signed by Jason Lee MD 01/27/2019 10:56 A
[2019-01-27 17:44] VITALS: BP 133/84
[2019-01-28 06:00] VITALS: BP 115/65
[2019-01-28] MEDS: ACETAMINOPHEN 500 MG TAB PO PRN (06:25)
[2019-01-28] MEDS: PRENATAL VITAMINS CHEWABLE TABLET PO SCH (08:37)
== END 2019-01-28 10:50 | disposition home or self-care (01) | DRG 560 ==
LOC: M LDI 10:05 → M OBS 18:01
PROVIDERS: ADMIT Obstetrics & Gynecology; ATTEND Obstetrics & Gynecology
PROC: 10E0XZZ Delivery of Products of Conception, External Approach (ICD-10-PCS; principal; 2019-01-26)
PROC: 3E033VJ Introduction of Other Hormone into Peripheral Vein, Percutaneous Approach (ICD-10-PCS; 2019-01-26)
DX: O80 Encounter for full-term uncomplicated delivery (principal); Z37.0 Single live birth; Z3A.39 39 weeks gestation of pregnancy

== ENCOUNTER 2019-04-12 12:34 | Day surgery (SDC) | payer OTHER ==
[~2019-04-12] VITALS: Ht 167.6 cm; Wt 93.0 kg
[~2019-04-12 12:34] MED LIST changes: +ACETAMINOPHEN 1000MG 100ML IV BTL (OFIRMEV) (J0131 PER 10MG) As Ordered ONE; +IBUP80TA PO; +KETOROLAC 60 MG/2 ML VIAL (J1885) As Ordered ONE; +LIDOCAINE 2% INJ 100 MG/5 ML SDV (FOR ANES.) As Ordered ONE; +LR 1,000 ML IV ONE; +MIDAZOLAM INJ 2 MG/2 ML VIAL (J2250) As Ordered ONE; +ONDANSETRON 4MG/2ML VIAL (J2405) As Ordered ONE; +PRENTAB9 PO; +PROPOFOL 200 MG/20 ML VIAL As Ordered ONE; +ROCURONIUM BROMIDE 50 MG/5 ML VIAL As Ordered ONE; +SUGAMMADEX SODIUM 500 MG/5 ML VIAL (BRIDION) As Ordered ONE; +dexameTHASONE 4 MG/ML 1ML VIAL (J1100) As Ordered ONE; +fentaNYL 100 MCG/2 ML INJECTION (J3010) As Ordered ONE
[2019-04-12 13:19] LABS: HEMATOCRIT 42.4 % (36.0-47.0); MEAN CORPUSCULAR HEMOGLOBIN 23.8 pg (27.0-33.0); MEAN CORPUSCULAR HGB CONC 30.7 g/dl (32.0-36.5); MEAN CORPUSCULAR VOLUME 77.5 fl (80.0-96.0); PLATELET COUNT, AUTOMATED 312 10^3/uL (150-450); RED BLOOD COUNT 5.47 10^6/uL (4.00-5.40); WHITE BLOOD COUNT 4.6 10^3/uL (4.0-10.0)
[2019-04-12 13:43] LABS: HCG, SERUM QUALITATIVE NEGATIVE (NEGATIVE)
[2019-04-12] MEDS ORDERED: BUPIVACAINE HCL 0.25% 30 ML VIAL As Ordered ONE (14:07)
[2019-04-12] MEDS ORDERED: IBUP80TA PO (15:23)
[2019-04-12] MEDS ORDERED: OXYC1TAB23 PO (15:24)
[2019-04-12] MEDS ORDERED: ONDANSETRON 4MG/2ML VIAL (J2405) IV PRN (15:45)
[2019-04-12] MEDS ORDERED: oxyCODONE 5MG TAB PO PRN (15:45)
[2019-04-12] MEDS ORDERED: LR 1,000 ML IV SCH ×2 (15:45)
[2019-04-12] MEDS: fentaNYL 100 MCG/2 ML INJECTION (J3010) IV PRN ×2 (15:54→16:00)
[2019-04-12 17:20] VITALS: BP 125/77
== END 2019-04-12 17:38 | disposition home or self-care (01) ==
LOC: M SDC 12:34
PROVIDERS: ATTEND Obstetrics & Gynecology
DX: Z30.2 Encounter for sterilization (principal)
CPT/HCPCS: 36415; 58661; 84703; 85027; 86850; 86900; 86901; 88302; J0131; J1100; J1885; J2250; J2405; J3010

== ENCOUNTER → 2020-03-03 | Outpatient (REF) | payer OTHER ==
[~2020-03-03] MED LIST changes: -ACETAMINOPHEN 1000MG 100ML IV BTL (OFIRMEV) (J0131 PER 10MG) As Ordered ONE; -KETOROLAC 60 MG/2 ML VIAL (J1885) As Ordered ONE; -LIDOCAINE 2% INJ 100 MG/5 ML SDV (FOR ANES.) As Ordered ONE; -LR 1,000 ML IV ONE; -MIDAZOLAM INJ 2 MG/2 ML VIAL (J2250) As Ordered ONE; -ONDANSETRON 4MG/2ML VIAL (J2405) As Ordered ONE; +OXYC1TAB23 PO; -PROPOFOL 200 MG/20 ML VIAL As Ordered ONE; -ROCURONIUM BROMIDE 50 MG/5 ML VIAL As Ordered ONE; -SUGAMMADEX SODIUM 500 MG/5 ML VIAL (BRIDION) As Ordered ONE; -dexameTHASONE 4 MG/ML 1ML VIAL (J1100) As Ordered ONE; -fentaNYL 100 MCG/2 ML INJECTION (J3010) As Ordered ONE
[2020-03-03 12:26] LABS: APPEARANCE, URINE HAZY (CLEAR); BACTERIA, URINE AUTO 1+ (NEGATIVE); BILIRUBIN, URINE AUTO NEGATIVE (NEGATIVE); BLOOD, URINE BLOOD NEGATIVE (NEGATIVE); COLOR, URINE YELLOW (YELLOW); GLUCOSE, URINE (UA) AUTO NEGATIVE (NEGATIVE); KETONE, URINE AUTO NEGATIVE (NEGATIVE); LEUKOCYTE ESTERASE, URINE AUTO 1+ (NEGATIVE); NITRITE, URINE AUTO NEGATIVE (NEGATIVE); PROTEIN, URINE AUTO 1+ mg/dL (NEGATIVE); RBC, URINE AUTO 6 /HPF (0-3); SPECIFIC GRAVITY URINE AUTO 1.023 (1.002-1.035); SQUAMOUS EPITHELIAL CELL UR AU 1 /HPF (0-6); UROBILINOGEN, URINE AUTO 0.2 mg/dL (0.0-2.0); WBC, URINE AUTO 110 /HPF (0-3)
== END ==
LOC: M LAB REF 11:38
PROVIDERS: ATTEND Physician Assistant Medical
DX: N39.0 Urinary tract infection, site not specified (principal)

== ENCOUNTER → 2020-05-07 | Outpatient (REF) | payer OTHER ==
[2020-05-07 17:23] LABS: BASO # 0.1 10^3/uL (0.0-0.2); BASO % 0.6 % (0.0-1.0); EOS # 0.1 10^3/uL (0.0-0.5); EOS % 1.5 % (0.0-3.0); HEMATOCRIT 38.2 % (36.0-47.0); HEMOGLOBIN 11.6 g/dl (12.0-15.5); LYMPH # 2.8 10^3/uL (1.5-5.0); LYMPH % 31.5 % (24.0-44.0); MEAN CORPUSCULAR HEMOGLOBIN 24.1 pg (27.0-33.0); MEAN CORPUSCULAR HGB CONC 30.4 g/dl (32.0-36.5); MEAN CORPUSCULAR VOLUME 79.3 fl (80.0-96.0); MONO # 0.3 10^3/uL (0.0-0.8); MONO % 3.2 % (0.0-5.0); NEUTROPHILS # 5.5 10^3/uL (1.5-8.5); NEUTROPHILS % 62.9 % (36.0-66.0); PLATELET COUNT, AUTOMATED 378 10^3/uL (150-450); RED BLOOD COUNT 4.82 10^6/uL (4.00-5.40); WHITE BLOOD COUNT 8.7 10^3/uL (4.0-10.0)
[2020-05-07 17:43] LABS: ALBUMIN 3.6 GM/DL (3.2-5.2); ALT/SGPT 24 U/L (12-78); BILIRUBIN,TOTAL 0.2 MG/DL (0.2-1.0); BLOOD UREA NITROGEN 11 MG/DL (7-18); CALCIUM LEVEL 8.8 MG/DL (8.5-10.1); CARBON DIOXIDE LEVEL 28 MEQ/L (21-32); CHLORIDE LEVEL 105 MEQ/L (98-107); CREATININE FOR GFR 0.63 MG/DL (0.55-1.30); GLOMERULAR FILTRATION RATE > 60.0 (>60); GLUCOSE, FASTING 102 MG/DL (70-100); POTASSIUM SERUM 4.3 MEQ/L (3.5-5.1); SODIUM LEVEL 139 MEQ/L (136-145); TOTAL PROTEIN 7.2 GM/DL (6.4-8.2)
[2020-05-07 19:25] LABS: HEMOGLOBIN A1c 5.1 %
== END ==
LOC: M LAB REF 16:17
PROVIDERS: ATTEND Physician Assistant
DX: F41.9 Anxiety disorder, unspecified (principal); E66.9 Obesity, unspecified; Z83.3 Family history of diabetes mellitus

== ENCOUNTER → 2020-06-17 | Outpatient (REF) | payer OTHER ==
[2020-06-17 12:16] LABS: BASO # 0.1 10^3/uL (0.0-0.2); BASO % 0.6 % (0.0-1.0); EOS # 0.1 10^3/uL (0.0-0.5); EOS % 1.2 % (0.0-3.0); HEMATOCRIT 39.2 % (36.0-47.0); HEMOGLOBIN 12.1 g/dl (12.0-15.5); MEAN CORPUSCULAR HEMOGLOBIN 24.4 pg (27.0-33.0); MEAN CORPUSCULAR HGB CONC 30.9 g/dl (32.0-36.5); MEAN CORPUSCULAR VOLUME 79.2 fl (80.0-96.0); MONO # 0.5 10^3/uL (0.0-0.8); MONO % 5.4 % (2.0-8.0); NEUTROPHILS # 5.2 10^3/uL (1.5-8.5); NEUTROPHILS % 58.5 % (36.0-66.0); PLATELET COUNT, AUTOMATED 354 10^3/uL (150-450); RED BLOOD COUNT 4.95 10^6/uL (4.00-5.40); WHITE BLOOD COUNT 8.9 10^3/uL (4.0-10.0)
[2020-06-17 12:41] LABS: PERCENT SATURATION 7.1 % (13.2-45.0)
[2020-06-17 12:48] LABS: FOLATE 7.8 NG/ML
== END ==
LOC: M LAB REF 11:30
PROVIDERS: ATTEND Physician Assistant
DX: D64.9 Anemia, unspecified (principal)

== ENCOUNTER → 2020-08-06 | Outpatient (REF) | payer OTHER | LOC: M LAB REF 12:32 | PROVIDERS: ATTEND Physician Assistant | DX: Z12.4 Encounter for screening for malignant neoplasm of cervix (principal) ==

== ENCOUNTER → 2020-11-26 | Outpatient (REF) | payer OTHER ==
[2020-11-26 18:24] LABS: BASO # 0.1 10^3/uL (0.0-0.2); BASO % 0.6 % (0.0-1.0); EOS # 0.1 10^3/uL (0.0-0.5); EOS % 1.4 % (0.0-3.0); HEMOGLOBIN 11.4 g/dl (12.0-15.5); LYMPH # 2.4 10^3/uL (1.5-5.0); LYMPH % 29.6 % (24.0-44.0); MEAN CORPUSCULAR HEMOGLOBIN 23.8 pg (27.0-33.0); MEAN CORPUSCULAR HGB CONC 30.8 g/dl (32.0-36.5); MEAN CORPUSCULAR VOLUME 77.4 fl (80.0-96.0); MONO # 0.4 10^3/uL (0.0-0.8); MONO % 4.7 % (2.0-8.0); NEUTROPHILS # 5.1 10^3/uL (1.5-8.5); NEUTROPHILS % 63.5 % (36.0-66.0); PLATELET COUNT, AUTOMATED 343 10^3/uL (150-450); RED BLOOD COUNT 4.78 10^6/uL (4.00-5.40); WHITE BLOOD COUNT 8.1 10^3/uL (4.0-10.0)
[2020-11-26 18:54] LABS: PERCENT SATURATION 10.5 % (13.2-45.0)
== END ==
LOC: M LAB REF 17:37
PROVIDERS: ATTEND Physician Assistant
DX: E61.1 Iron deficiency (principal)

== ENCOUNTER → 2021-01-05 | Outpatient (CLI) | payer OTHER ==
--- NOTE | 2021-01-06 15:47 | SLEEPHOME ---
DATE: 01/05/2021 DIAGNOSTIC HOME SLEEP TEST ORDERED BY: ESTELITA Herzog Diagnostic home sleep testing was performed due to concern for the obstructive sleep apnea syndrome. For testing, a nocturnal T3 respiratory monitoring device was used. Continuous record was made of pulse, oxygen saturation, air flow, chest and abdominal strain, and body position. Eight hours and 22 minutes of data were reviewed. During this interval, 220 respiratory events were identified of 10 seconds in duration or greater for a respiratory event index of 26.3. The events were primarily obstructive. Baseline saturation was 93%, saturation fell to the low 80s. Baseline pulse rate 86, pulse rate range 63 to 181. IMPRESSION: Abnormal home sleep testing with repetitive respiratory events, oxygen desaturation of 82% and a respiratory event index of 26.3 is consistent with the obstructive sleep apnea syndrome. RECOMMENDATION: The patient should be encouraged to undergo a formal sleep evaluation. MTDD
== END ==
LOC: M SLEEP HO 11:30
PROVIDERS: ATTEND Physician Assistant
DX: R40.0 Somnolence (principal)

== ENCOUNTER → 2023-06-01 | Outpatient (REF) | payer OTHER ==
[2023-06-01 17:24] LABS: ALBUMIN 3.6 G/DL (3.2-5.2); ALKALINE PHOSPHATASE 66 U/L (46-116); ALT/SGPT 22 U/L (7.0-40); AST/SGOT 14 U/L (<34); BASO % 0.7 % (0.0-1.0); BILIRUBIN,TOTAL 0.2 MG/DL (0.3-1.2); BLOOD UREA NITROGEN 12 MG/DL (9-23); CALCIUM LEVEL 8.9 MG/DL (8.5-10.1); CARBON DIOXIDE LEVEL 29 MMOL/L (20-31); CHLORIDE LEVEL 105 MMOL/L (98-107); CHOLESTEROL LEVEL 169 MG/DL (<200); CHOLESTEROL RISK RATIO 2.77 (<5); CREATININE FOR GFR 0.47 MG/DL (0.55-1.30); EOS # 0.1 10^3/uL (0.0-0.5); GLOMERULAR FILTRATION RATE > 60.0 (>60); GLUCOSE, FASTING 85 MG/DL (60-100); HDL CHOLESTEROL 60.9 MG/DL (>40); HEMATOCRIT 35.5 % (36.0-47.0); HEMOGLOBIN 10.7 g/dl (12.0-15.5); IRON (FE) 15 UG/DL (50-170); LDL CHOLESTEROL 98.9 MG/DL (<100); LYMPH # 2.2 10^3/uL (1.5-5.0); LYMPH % 37.1 % (24.0-44.0); MAGNESIUM LEVEL 1.7 MG/DL (1.8-2.4); MEAN CORPUSCULAR HGB CONC 30.1 g/dl (32.0-36.5); MEAN CORPUSCULAR VOLUME 79.8 fl (80.0-96.0); MONO # 0.3 10^3/uL (0.0-0.8); MONO % 4.9 % (2.0-8.0); NEUTROPHILS # 3.3 10^3/uL (1.5-8.5); NEUTROPHILS % 56.1 % (36.0-66.0); NON-HDL-C 108.1 MG/DL; PERCENT SATURATION 3.9 % (13.2-45.0); PLATELET COUNT, AUTOMATED 328 10^3/uL (150-450); POTASSIUM SERUM 4.5 MMOL/L (3.5-5.1); RED BLOOD COUNT 4.45 10^6/uL (4.00-5.40); SODIUM LEVEL 138 MMOL/L (136-145); TOTAL IRON BINDING CAPACITY 389 UG/DL (250-425); TOTAL PROTEIN 7.3 G/DL (5.7-8.2); TRIGLYCERIDES LEVEL 46 MG/DL (<150); WHITE BLOOD COUNT 5.9 10^3/uL (4.0-10.0)
[2023-06-01 17:25] LABS: THYROID STIMULATING HORMONE 0.883 uIU/ML (0.55-4.78)
[2023-06-01 17:26] LABS: FERRITIN 2.5 NG/ML (7.3-270.7); TOTAL 25(OH) VITAMIN D 12.1 NG/ML (20.0-100.0)
[2023-06-01 17:56] LABS: HIV 1&2 SCREEN NEGATIVE (NEGATIVE)
[2023-06-01 18:02] LABS: HEMOGLOBIN A1c 4.9 % (4.0-6.0)
[2023-06-01 18:04] LABS: HEPATITIS C VIRUS ABY INDEX < 0.02 INDEX (<0.8)
== END ==
LOC: M LAB REF 16:27
PROVIDERS: ATTEND Physician Assistant
DX: D50.9 Iron deficiency anemia, unspecified (principal); Z11.9 Encounter for screening for infectious and parasitic diseases, unspecified; E66.9 Obesity, unspecified; R53.83 Other fatigue

== ENCOUNTER → 2023-06-30 | Outpatient (CLI) | payer OTHER | LOC: M RAD 16:13 | PROVIDERS: ATTEND Physician Assistant | DX: Z82.71 Family history of polycystic kidney (principal) ==

== ENCOUNTER → 2023-12-11 | Outpatient (REF) | payer OTHER | LOC: M SFHCDERM 17:59 | PROVIDERS: ATTEND Physician Assistant | DX: L72.12 Trichodermal cyst (principal) ==

== ENCOUNTER → 2024-05-30 | Outpatient (CLI) | payer OTHER ==
[2024-05-30 14:09] LABS: HEPATITIS B SURFACE ANTIGEN NEGATIVE (NEGATIVE)
[2024-05-30 14:22] LABS: HIV 1&2 SCREEN NEGATIVE (NEGATIVE)
[2024-05-30 14:31] LABS: HEPATITIS B CORE ANTIBODY IGM NEGATIVE (NEGATIVE); HEPATITIS C VIRUS ABY INDEX 0.02 INDEX (<0.8)
== END ==
LOC: M WUC 10:12
PROVIDERS: ATTEND Dentist
DX: Z11.3 Encounter for screening for infections with a predominantly sexual mode of transmission (principal)